=== PATIENT | female | born 1945 | race Caucasian/White ===

== ENCOUNTER 2016-05-11 12:31 | Inpatient (IN) | payer OTHER, MEDICARE ==
[~2016-05-11] VITALS: Ht 157.5 cm; Wt 90.7 kg
--- NOTE | 2016-05-11 12:43 | NUR ---
PT PRESENTS TO ER C/O OF NAUSEA AND DIARRHEA X4 DAYS. PT ALSO C/O OF ON AND OFF CHEST PAIN WHEN COUGHING. PT STATES SHE HAS A NON PRODUCTIVE COUGH THAT STARTED 4 DAYS AGO. PT ALSO C/O OF PAIN TO THROAT WHEN COUGHING
[2016-05-11 13:00] LABS: ABSOLUTE BASOPHIL COUNT 0 /CUMM (0.0-0.2); ABSOLUTE EOSINOPHIL COUNT 0 /CUMM (0.0-0.7); ABSOLUTE GRANULOCYTE CT 3.7 /CUMM (1.4-6.5); ABSOLUTE LYMPH COUNT 0.8 /CUMM (1.2-3.4); ABSOLUTE MONOCYTE COUNT 0.6 /CUMM (0.10-0.60); BASOPHIL % 0.6 % (0.0-2.0); EOSINOPHIL % 0.8 % (0-5); GRANULOCYTE % 70.9 % (42.2-75.2); HEMATOCRIT 38.1 % (37-47); MEAN CORPUSCULAR HGB 30.3 PG (27.0-31.0); MEAN CORPUSCULAR VOLUME 91.8 FL (81.0-99.0); MEAN PLATELET VOLUME 9.4 FL (7.4-10.4); PLATELET COUNT 112 /CUMM (130-400); RBC DISTRIBUTION WIDTH 14.7 % (11.5-14.5); RED BLOOD CELL CT 4.15 /CUMM (4.20-5.40); WHITE BLOOD CELL COUNT 5.3 /CUMM (4.8-10.8)
--- NOTE | 2016-05-11 13:10 | NUR ---
CRITICAL TEST RESULTS [id number] SIM CASTILLO 70 F TESTS AND RESULTS: INFLUENZA A+ Results received and read back by: ADELINA ARANGO Results received date and time: 05/11/16 1310 The following provider was notified of the results, and read the results back: DR POSADAS Notified date and time: 05/11/16 at 1310
--- NOTE | 2016-05-11 13:16 | RADIOLOGY REPORT ---
EXAMINATION: XR CHEST CLINICAL INFORMATION: Cough, rule out pneumonia COMPARISON: 07/22/2014 TECHNIQUE: Frontal and lateral views of the chest were obtained. FINDINGS: The frontal radiograph is underpenetrated. Lungs are clear. No focal consolidation or mass. Normal pulmonary vascularity. No pleural effusion or pneumothorax. Normal heart size. Sternal wires. Mildly tortuous aorta. Multilevel degenerative changes of the thoracic spine with diffuse idiopathic skeletal hyperostosis.. IMPRESSION: No acute pulmonary disease.
--- NOTE | 2016-05-11 14:08 | ED INFLUENZA/URI COMPLAINT ---
History of Present Illness General Chief Complaint: Upper Respiratory Sx/Fever Stated Complaint: NVD X4 DAYS COUGH AND NECK PAIN Source: patient, family, old records Exam Limitations: no limitations Vital Signs & Intake/Output Vital Signs & Intake/Output Vital Signs Date Time Temp Pulse Resp B/P Pulse O2 O2 Flow FiO2 Ox Delivery Rate 05/13 0000 Room Air 05/12 2219 98.5 63 20 160/70 92 Room Air 05/12 1600 Room Air 05/12 1347 97.4 76 20 138/70 96 Room Air 05/12 0800 Room Air ED Intake and Output 05/13 0000 05/12 1200 Intake Total 2742 1120 Output Total 1500 700 Balance 1242 420 Intake, IV 1302 1000 Intake, Oral 1440 120 Number 0 Bowel Movements Output, Urine 1500 700 Patient 200 lb Weight Allergies Coded Allergies: oxycodone (Intermediate, ITCHING 05/11/16) Reconcile Medications Amlodipine Besylate 10 MG TABLET 1 TAB PO DAILY BLOOD PRESSURE (Reported) Atenolol 100 MG TABLET 1 TAB PO DAILY BLOOD PRESSURE (Reported) Atorvastatin Calcium 40 MG TABLET 1 TAB PO 5PM CHOLESTEROL (Reported) Furosemide 40 MG TABLET 1 TAB PO DAILY EDEMA (Reported) Reason to Stop at ADM: RUFINO Hydrochlorothiazide 25 MG TABLET 1 TAB PO DAILY BLOOD PRESSURE (Reported) Reason to Stop at ADM: RUFINO Insulin Detemir (Levemir) 100 UNIT/ML VIAL 35 UNITS SC BID DM (Reported) Levothyroxine Sodium 175 MCG TABLET 1 TAB PO DAILY AC THYROID (Reported) Lisinopril 20 MG TABLET 1 TAB PO DAILY BLOOD PRESSURE (Reported) Reason to Stop at ADM: RUFINO Omeprazole 40 MG CAPSULE.DR 1 CAP PO DAILY GERD (Reported) Triage Note: PT PRESENTS TO ER C/O OF NAUSEA AND DIARRHEA X4 DAYS. PT ALSO C/O OF ON AND OFF CHEST PAIN WHEN COUGHING. PT STATES SHE HAS A NON PRODUCTIVE COUGH Triage Nurses Notes Reviewed? yes Onset: Abrupt Duration: day(s): (4), constant Timing: recent history Severity: moderate Severity Numbers: 7 No Modifying Factors: none Associated Symptoms: lightheadedness, muscle aches, nausea, diarrhea HPI: This is 70-year-old female with history of coronary artery disease insulin- dependent diabetic presents complaining of 4 day history of a nonproductive cough, sore throat diarrhea and nausea chills generalized bodyaches. She denies any sick contacts with similar symptoms. No abdominal pain no fevers. The patient states she's been unable to keep anything down secondary to her symptoms and has had difficulty taking her medicine other than her insulin. She reports she's had chest pain secondary to her coughing denies any chest pain at this time no palpitations dizziness or lightheadedness. No modifying factors or associated symptoms otherwise no black or bloody stools (SANGEETA KNOWLES) Past History Travel History Traveled to [place] past 21 day No Medical History Any Pertinent Medical History? see below for history Cardiovascular: hypertension, hyperlipidemia Endocrine: diabetes Pneumonia Vaccine: 01/31/12 Influenza Vaccine: 01/31/12 Surgical History Surgical History: non-contributory Psychosocial History Who do you live with Spouse What is your primary language [place] Tobacco Use: Never used Family History Hx Contributory? No (SANGEETA KNOWLES) Review of Systems Review of Systems Constitutional: Reports: see HPI. All Other Systems: Reviewed and Negative Comments Review of systems: See HPI, All other systems negative. Constitutional, no chills no fever, no malaise HEENT: No visual changes no sore throat no congestion, no ear pain Cardiovascular: No chest pain , no palpitation Skin, no jaundice no rashes, no change in skin Respiratory: No dyspnea no cough no sputum GI: No nausea no vomiting, diarrhea, no bloating/constipation : No dysuria No hematuria, no frequency, no discharge Muscle skeletal: No joint pain, no joint swelling, no back pain, no neck pain, Neurologic: no headache Psych: No stress . Heme/endocrine: No bruising no bleeding Immunology: No lymphadenopathy (SANGEETA KNOWLES) Physical Exam Physical Exam General Appearance: well developed/nourished, alert, awake Ears, Nose, Throat: normal ENT inspection, moist mucous membrane, hearing grossly normal Comments: Well-developed well-nourished person in no acute distress HEENT: Normal EENT exam; PERRL, EOMI, no nystagmus. HEAD is atraumatic. moist mucous membranes. Neck: Supple, no lymphadenopathy, normal range of motion without pain or tenderness Back: Nontender, no CVA tenderness. Full range of motion Cardiovascular: Regular rate and rhythms no murmurs rubs or gallops, normal JVP Respiratory: Chest nontender.There were no bony deformities, no asymmetry. No respiratory distress. Patient speaking in full complete sentences. Breath sounds clear to auscultation bilaterally: NO W/R/R Abdomen: Soft, nontender nondistended, no appreciable organomegaly. Normal bowel sounds. No rebound/guarding, No appreciable enlargement of the abdominal aorta, No ascites. Extremity: No edema, full range of motion of extremities, normal and equal pulses bilaterally, 5 out of 5 strength noted to bilateral upper and lower extremities Neuro: Alert oriented x3, motor sensory normal, cranial nerves II through XII grossly intact. There were no obvious focal neurologic abnormalities. Skin: No appreciable rash on exposed skin, skin is warm and dry. Psych: Mood and affect is normal, memory and judgment is normal. Core Measures Severe Sepsis Present: No Septic Shock Present: No (SANGEETA KNOWLES) Progress Differential Diagnosis: influenza, pneumonia, pharyngitis, bronchitis electrolyte abnormality dehydration acute KS Plan of Care: Orders Procedure Date/time Status CBC WITHOUT DIFFERENTIAL 05/13 0600 Active BASIC ELECTROLYTES PLUS BUN&CR 05/13 0600 Active Consistent Carbohydrate 2 05/12 L Active BLOOD CULTURE 05/12 0740 Active URIC ACID 05/12 0640 Complete Lab Add-on Test 05/12 UNK Active Nursing Misc 05/12 UNK Active Current Medications Sig/Nita Start time Last Medication Dose Stop Time Status Admin Prednisone 10 MG BID 05/17 1000 AC 05/18 2200 Prednisone 15 MG BID 05/15 1000 AC 05/16 220 Prednisone 20 MG BID 05/13 1000 AC 05/14 2201 Acetaminophen 1,000 MG Q6P PRN 05/11 1600 AC (Ofirmev) Loperamide HCl 2 MG Q3P PRN 05/11 1600 AC (Imodium) Morphine Sulfate 2 MG Q4P PRN 05/11 1600 AC (Morphine) Ondansetron HCl 4 MG Q6P PRN 05/11 1500 AC (Zofran) Microbiology 05/12 0830 BLOOD: Blood Culture - RECD 05/12 0825 BLOOD: Blood Culture - RECD Alabs ordered, old records reviewed. Case discussed with Dr. alanis Discussed with patient at length all of her lab results Gran in 3.0 is elevated from baseline, given positive flu recent dehydration IV fluids ordered case d/w dr gordo donaldson in dept to tiffanie pt (SANGEETA KNOWLES) Diagnostic Imaging: Viewed by Me: Radiology Read. Discussed w/RAD: Radiology Read. Radiology Impression: PATIENT: SIM CASTILLO PRESENT AGE: 70 PATIENT ACCOUNT NO: [id number] : 43 LOCATION: [facility] ORDERING PHYSICIAN: MAN LEÓN DO (TBS) SERVICE DATE: 05/11/16-1242 EXAM TYPE: RAD - XRY-CHEST XRAY, PA AND LATERAL EXAMINATION: XR CHEST CLINICAL INFORMATION: Cough, rule out pneumonia COMPARISON: 07/22/2014 TECHNIQUE: Frontal and lateral views of the chest were obtained. FINDINGS: The frontal radiograph is underpenetrated. Lungs are clear. No focal consolidation or mass. Normal pulmonary vascularity. No pleural effusion or pneumothorax. Normal heart size. Sternal wires. Mildly tortuous aorta. Multilevel degenerative changes of the thoracic spine with diffuse idiopathic skeletal hyperostosis.. IMPRESSION: No acute pulmonary disease. DICTATED BY: MARILIA ARAIZA MD DATE/TIME DICTATED:1311 COST CLERK:LÓPEZ DATE/TIME TRANSCRIBED:05/11/161311 CONFIDENTIAL, DO NOT COPY WITHOUT APPROPRIATE AUTHORIZATION. <Electronically signed in Other Vendor System> SIGNED BY: MARILIA ARAIZA MD 05/11/161315 Initial ED EKG: normal sinus at [address] segment changes normal axis Prior EKG: unchanged (07/2012) (SANGEETA KNOWLES) Departure Departure Time of Disposition: 1527 Disposition: STILL A PATIENT Condition: Stable Clinical Impression Primary Impression: Influenza A Secondary Impressions: Acute kidney injury Referrals: RICHY WEEKS,JIMI Reyes (PCP/Family) Departure Forms: Customer Survey General Discharge Information Admission Note Spoke With: GORDO WEEKS,RACHEL Documentation of Exam: Documentation of any treatments & extenuating circumstances including Concerns Regarding Discharge (functional status, medication knowledge or non-compliance, living conditions, etc.) that warrant an admission rather than observation: trend labs IV fluids, premature discharge would BE medically harmful] (SANGEETA KNOWLES) PA/ASSEMBLER CARBON BRUSHES Co-Sign Statement Statement: ED Attending supervision documentation- [X] I saw and evaluated the patient. I have also reviewed all the pertinent lab results and diagnostic results. I agree with the findings and the plan of care as documented in the PA's/ASSEMBLER CARBON BRUSHES's documentation. [X] I have reviewed the ED Record and agree with the PA's/ASSEMBLER CARBON BRUSHES's documentation. [] Additions or exceptions (if any) to the PAs/ASSEMBLER CARBON BRUSHES's note and plan are summarized below: [] (CUAUHTEMOC WEEKS,EMILIANA Benavides) 05/11 1530 STOOL: Stool Culture - RECD Alabs ordered, old records reviewed. Case discussed with Dr. alanis Discussed with patient at length all of her lab results Gran in 3.0 is elevated from baseline, given positive flu recent dehydration IV fluids ordered case d/w dr gordo garrett dmit alta donaldson in dept to [place] pt (SANGEETA KNOWLES) Departure Departure Time of Disposition: 1527 Disposition: STILL A PATIENT Condition: Stable Clinical Impression Primary Impression: Influenza A Secondary Impressions: Acute kidney injury Referrals: RICHY WEEKS,JMII Reyes (PCP/Family) Departure Forms: Customer Survey General Discharge Information Admission Note Spoke With: RACHEL AGUSTIN MD Documentation of Exam: Documentation of any treatments & extenuating circumstances including Concerns Regarding Discharge (functional status, medication knowledge or non-compliance, living conditions, etc.) that warrant an admission rather than observation: trend labs IV fluids, premature discharge would BE medically harmful] (SANGEETA KNOWLES) PA/ASSEMBLER [employer]BON BRUSHES Co-Sign Statement Statement: ED Attending supervision documentation- [X] I saw and evaluated the patient. I have also reviewed all the pertinent lab results and diagnostic results. I agree with the findings and the plan of care as documented in the PA's/ASSEMBLER CARBON BRUSHES's documentation. [X] I have reviewed the ED Record and agree with the PA's/ASSEMBLER CARBON BRUSHES's documentation. [] Additions or exceptions (if any) to the PAs/ASSEMBLER CARBON BRUSHES's note and plan are summarized below: [] (CUAUHTEMOC WEEKS,EMILIANA Benavides)
--- NOTE | 2016-05-11 14:48 | NUR ---
PT ADMITTED TO ROOM 227
--- NOTE | 2016-05-11 15:16 | Admission Certification ---
Admission Certification Certification Statement - As attending physician, I certify that at the time of - admission, based on clinical presentation, severity of - symptoms, need for further diagnostic testing and - therapeutic interventions, and risk of adverse outcomes - without in-hospital treatment, in my clinical assessment, - this patient requires an acute hospital stay for a minimum - of two nights or longer. I have also considered psychsocial - factors such as support system, advanced age, financial - issues, cognitive issues, and failed out-patient treatments, - past re-admission history, safety of patient, and lack of - compliance as applicable. Specific rationale supporting this admission is: Influenza with profuse diarrhea, dehydration, and RUFINO
--- NOTE | 2016-05-11 15:21 | NUR ---
LINE EST #20 TO RAC. MEDICATED PER EMAR.
[2016-05-11] MEDS ORDERED: LEVOTHYROXINE175 MCG PO (15:46)
[2016-05-11] MEDS ORDERED: ATORVASTATIN CA40 M1 PO (15:47)
[2016-05-11] MEDS ORDERED: LEVEMIR100 UNIT/1 SC (15:47)
[2016-05-11] MEDS ORDERED: LISINOPRIL20 M1 PO (15:48)
[2016-05-11] MEDS ORDERED: OMEPRAZOLE40 M1 PO (15:48)
[2016-05-11] MEDS ORDERED: ATENOLOL100 M1 PO (15:48)
[2016-05-11] MEDS ORDERED: HYDROCHLOROTHIA25 M1 PO (15:48)
[2016-05-11] MEDS ORDERED: AMLODIPINE BESY10 M1 PO (15:49)
[2016-05-11] MEDS ORDERED: FUROSEMIDE40 M1 PO (15:49)
--- NOTE | 2016-05-11 15:50 | History & Physical ---
MARILYN WEI MD 05/11/16 1549: General Information and HPI MD Statement: I have seen and personally examined SIM CASTILLO and documented this H&P. The patient is a 70 year old F who presented with a patient stated chief complaint of fatigue, weakness, decreased oral intake, muscle aches, and loose watery bowel movements. Source of Information: patient, family Exam Limitations: no limitations History of Present Illness: 70-year-old woman seen for evaluation of fatigue, lethargy, pain, diarrhea, and poor oral intake. At bedside is patient's whom is available for collateral information. They state that they have both been dealing with an "illness" for the past 4/5 days. She reports numerous loose bowel movements that were originally dark but have now turned to loose watery brown consistency. She also complains of profound fatigue and lethargy with various nonspecific sites of pain in addition to her chronic low back pain for which she receives injections periodically. She does also admit to not eating or drinking as well as she should be. She denies taking any [id number] remedies for relief and otherwise states no aggravating symptoms. She does admit to associated neck pain characterized as 8/10 with radiation to the back of her head. She denies any fever, cough, chest pain, or shortness of breath. Additionally she denies any headache, chills, palpitations, vomiting, urinary frequency/urgency/burning/pain/bloody urine. PMHx: Hypertension, hyperlipidemia, IDDM, chronic low back pain Social Hx: Denies smoking/alcohol/recreational drug use, lives at home and ambulates independently able to complete all activities of daily living without difficulty at baseline, patient of Dr. Han, did not receive flu vaccine Allergies/Medications Allergies: Coded Allergies: oxycodone (Intermediate, ITCHING 05/11/16) Past History Travel History Traveled to [place] past 21 day No Medical History Cardiovascular: hypertension, hyperlipidemia Endocrine: diabetes, hypothyroidism Pneumonia Vaccine: 01/31/12 Influenza Vaccine: 01/31/12 Surgical History Surgical History: non-contributory Past Family/Social History Psychosocial History Smoking Status: Never Smoked ETOH Use: denies use Illicit Drug Use: denies illicit drug use Review of Systems Review of Systems Constitutional: Reports: see HPI. Exam & Diagnostic Data Last 24 Hrs of Vital Signs/I&O Vital Signs Date Time Temp Pulse Resp B/P Pulse O2 O2 Flow FiO2 Ox Delivery Rate 05/11 1758 Room Air 05/11 1728 97.5 61 20 100/60 94 Room Air 05/11 1616 96.1 50 18 122/58 94 Room Air 05/11 1238 97.6 20 95 Room Air Intake & Output 05/11 1600 05/11 0800 05/11 0000 Intake Total 1000 Output Total Balance 1000 Intake, IV 1000 Number 1 Bowel Movements Patient 95.254 kg Weight Physical Exam General Appearance Alert, Oriented X3, Cooperative, No Acute Distress Skin No Rashes, No Breakdown, No Significant Lesion, pale HEENT Atraumatic, PERRLA, EOMI, Mucous Membr. moist/pink Neck Supple Cardiovascular Regular Rate, Normal S1, Normal S2, No Murmurs Lungs Clear to Auscultation, Normal Air Movement Abdomen Normal Bowel Sounds, Soft, No Tenderness, No Hepatospenomegaly, No Masses Neurological Normal Speech, Normal Tone Extremities No Clubbing, No Cyanosis, No Edema, Normal Pulses, No Tenderness/ Swelling Vascular Normal Pulses, Pulses Symmetrical Last 24 Hrs of Labs/Martinez: Laboratory Tests 05/11/16 1253: Hemoglobin A1c Pending 05/11/16 1253: Anion Gap 16, Estimated GFR 15 L, BUN/Creatinine Ratio 33.3 H, Glucose 188 H, Calcium 8.3 L, Total Bilirubin 0.4, AST 39 H, ALT 33, Alkaline Phosphatase 115 , Troponin I 0.05, Total Protein 6.6, Albumin 3.5, Globulin 3.1, Albumin/ Globulin Ratio 1.1, TSH 10.500 H, Free T4 1.13, CBC w Diff NO MAN DIFF REQ, RBC 4.15 L, MCV 91.8, MCH 30.3, RDW 14.7 H, MPV 9.4, Gran % 70.9, Lymphocytes % 15.6 L, Monocytes % 12.1 H, Eosinophils % 0.8, Basophils % 0.6, Absolute Granulocytes 3.7, Absolute Lymphocytes 0.8 L, Absolute Monocytes 0.6, Absolute Eosinophils 0, Absolute Basophils 0, PUBS MCHC 33.0 05/11/16 1243: Virus Culture Pending Microbiology 05/11 1530 STOOL: Clostridium difficile Toxin A & B - RECD 05/11 153 STOOL: Stool Culture - RECD Diagnostic Data EKG Results HR 59 LA 168 QTc 444 CXR Results no acute process Other Results Rapid flu Assessment/Plan Assessment: 70-year-old woman with multiple medical problems seen for evaluation of fatigue, lethargy, weakness, decreased oral intake, and loose watery bowel movements. 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 Chest x-ray and EKG were unremarkable. Rapid flu was positive. Given this positive result in patients history suggestive of a gastroenteritis patient most likely is suffering from influenza versus any other alternative diagnosis-she denies any new/undercooked food consumption or recent travel. She is to be started on intravenous fluid resuscitation for dehydration and acute kidney injury and admitted to the general medicine floor for further management. Influenza/Acute Gastritis: Recent history of loose watery stools, nausea, decreased oral intake, and viral myalgia suggestive of an acute viral infection. Given positive rapid flu test is more likely than not patient is suffering from an active influenza infection. Onset of symptoms is reportedly 4-5 days prior to evaluation so medications such as Tamiflu will no longer be effective. -Supportive treatment -Guaifenesin 10 mL by mouth every 4 hours as needed for cough -Imodium 2 mg by mouth every 3 hours as needed for diarrhea -Zofran 4 mg IV every 6 hours as needed for nausea -Tessalon Perles and 100 mg by mouth 3 times a day when necessary for throat pain Acute kidney injury: Baseline creatinine 0.8 as of 07/01/13. Given her history of recent decreased oral intake in the past 4 days secondary to her nausea and symptoms of gastroenteritis in addition to her reported history of profuse loose watery bowel movements is more likely than not that she suffered kidney injury secondary to prerenal azotemia. -Avoid nephrotoxic medications such as NSAIDs -Normal saline at 125 mL per hour -Monitor BEP Insulin-dependent diabetes mellitus: -Hold oral hypoglycemics -Accu-Cheks 3 times a day before meals/at bedtime -NovoLog sliding scale insulin -Levemir 25 units twice a day Hypertension-stable, hold atenolol/amlodipine Hyperlipidemia-stable, continue atorvastatin 40 mg by mouth daily Hypothyroidism-stable, continue levothyroxin 175 MCG by mouth daily Pain plan: -Acetaminophen 1 g IV every 6 hours as needed for pain 4-6 Diet-consistent carbohydrate DVT prophylaxis-subcutaneous heparin CODE STATUS-full code As Ranked By This Provider Problem List: 1. Influenza A Core Measures/Miscellaneous Acute Coronary Syndrome ACS Diagnosis: No Cerebrovascular Accident CVA/TIA Diagnosis: No Congestive Heart Failure CHF Diagnosis: No Venous Thromboembolism VTE Risk Factors: Age > 40, Immobility, paresis, Obesity VTE Prophylaxis Ordered Inpt: Pharm- Heparin No Mech VTE prophylaxis d/t: No contraindications No VTE Pharm Prophylaxis d/t: No contraindications VTE Diagnosis: No VTE Type: NONE VTE Confirmed by (Test): NONE Severe Sepsis Severe Sepsis Present: No Septic Shock Septic Shock Present: No Miscellaneous Documentation Attending Case Discussed With: NAVEED LADD MD Primary Care Physician: JIMI HAN MD Patient sees these Specialists None Level of Patient Care: General Medicine NAVEED LADD MD 05/11/16 1716: General Information and HPI Allergies/Medications Home Med list Amlodipine Besylate 10 MG TABLET 1 TAB PO DAILY BLOOD PRESSURE (Reported) Atenolol 100 MG TABLET 1 TAB PO DAILY BLOOD PRESSURE (Reported) Atorvastatin Calcium 40 MG TABLET 1 TAB PO 5PM CHOLESTEROL (Reported) Furosemide 40 MG TABLET 1 TAB PO DAILY EDEMA (Reported) Reason to Stop at ADM: RUFINO Hydrochlorothiazide 25 MG TABLET 1 TAB PO DAILY BLOOD PRESSURE (Reported) Reason to Stop at ADM: RUFINO Insulin Detemir (Levemir) 100 UNIT/ML VIAL 35 UNITS SC BID DM (Reported) Levothyroxine Sodium 175 MCG TABLET 1 TAB PO DAILY AC THYROID (Reported) Lisinopril 20 MG TABLET 1 TAB PO DAILY BLOOD PRESSURE (Reported) Reason to Stop at ADM: RUFINO Omeprazole 40 MG CAPSULE.DR 1 CAP PO DAILY GERD (Reported) Attending MD Review Statement Attending Statement Attending MD Statement: examined this patient, discuss w/resident/PA/NURSING ASSISTANT, agreed w/resident/PA/NURSING ASSISTANT, reviewed EMR data (avail) Attending Assessment/Plan: 70F PMH HTN, HLD, IDDM presenting with 4 days of chills, diffuse myalgia, weakness, fatigue, sore throat, and profuse watery diarrhea. Patient appears ill and weak. Her recently tested positive for influenza. BP 122/58, HR 58, saturating well. Appears ill and diaphoretic on exam with evident dehydration, normal pharynx, no lymphadenopathy, clear lungs, normal cardiac exam, soft abdomen. Labs show RUFINO and dehydration. Rapid flu is positive. Plan - Admit to general medicine - IV hydration - Monitor renal function - No Tamiflu at this time as symptoms have been present for 4 days - Loperamide PRN for diarrhea - Tessalon Perles and Mucinex for cough - Agree with resident plan - Hold anti-hypertensives for now - Continue home medications - DVT PPx DANNY WEEKS,DANARANDOLPH 05/11/162042: Resident Review Statement Resident Statement: examined this patient, discussed with corporate intern, agreed with corporate intern, discussed with family, reviewed EMR data (avail), discussed with nursing , discussed with case mgmt, reviewed images, amended to note Other Findings: 70 yo female with pmh of HTN, HLD, DM, hypothyrodism, chronic back pain, hypothyroidism came from home due to chills, nausea, loose watery diarrhea x 4 days. Her oral intake was decreased and she had watery brownish stool > 10 times per day. Her had a recent flu. V/S: Afebrile, LA 50 RR 18 BP 122/58 Sat 94% on RA, alert, Ox3, in acute distress, CTA, regular rate, normal S1/S2, increased bowel sound, RLL Abdomen Td(+) without rTd. WBC 5.3, BUN 100/Cr 3, TSH 10.5, fT4 1.13. Influenza (+), CXR: unremarkable. 1. Influenza: No evidence of pneumonia. No need for tamiflu for now. cough suppressant for symptoms relief. 2. Diarrhea likely secondary to viral enteritis: No recent Hx of antibiotics. follow up stool culture. supportive management with IV fluid and imodium prn. 3. Acute kidney injury: likely prerenal from dehydration. continue IV hydration, check I/Os, BEP in AM, Avoid NSAIDS, ACEinh/ARB, diuretics. 4. DM: continue levemir & s/s. As pt's oral intake was decreased, SC levemir dose was decreased. Will adjust according to glucose level. check HbA1c. 5. Chronic back pain: pain pathway according to pain level. Avoid NSIADs due to RUFINO. 6. Hypothyroidism: c/w levothyroxine 175mcg. Diabetic diet, SC heparin, full code.
--- NOTE | 2016-05-11 16:28 | NUR ---
REPORT GIVEN TO ROGER. [facility] CALLED FOR PT TRANSPORT.
[2016-05-11 17:28] VITALS: BP 100/60
--- NOTE | 2016-05-11 20:01 | NUR ---
PT UP TO THE FLOOR AT 1710. PT ON DROPLET PX FOR +FLU. MASK ON PT IN HALLS. PT ORIENETED TO ROOM AND CALL LIGHT SYSTEM. PT A/O X3. VSS. PER PT GEENRALIZED WEAKENSS. CANE AT BASELINE, NO CANE WITH PT. GLASSES ON . DENTURES IN . PT C/O R FLANK PAIN DENIES NEED FOR INTERVENTION. URINE SAMPLE OBTAINED. GROIN REDNESS OTHERWISE NO BREAKDOWN NOTED. BSC IN ROOM. WILL MONITOR
[2016-05-11 22:14] VITALS: BP 110/60
[2016-05-12 06:30] VITALS: BP 116/70
--- NOTE | 2016-05-12 07:35 | PN- Housestaff ---
SANJUANA WEEKS,MARILYN 05/12/16 0735: Subjective Follow-up For: Influenza Acute kidney injury Urinary tract infection Subjective: Patient seen and examined. She is seen lying flat in bed resting comfortably. She appears to be in no acute distress. She states that she feels "a little better" than yesterday and reports improvement of her diarrhea. She does however admit to new right-sided abdominal pain that radiates to the back with discomfort upon urination. Additionally she comments that her left foot is exquisitely painful and denies any recent trauma. Otherwise she denies any headache, fever, chills, chest pain, palpitations, shortness of breath, vomiting. No overnight events reported. Review of Systems Constitutional: Reports: see HPI. Objective Last 24 Hrs of Vital Signs/I&O Vital Signs Date Time Temp Pulse Resp B/P Pulse O2 O2 Flow FiO2 Ox Delivery Rate 05/12 0630 97.9 60 20 116/70 93 Room Air 05/12 0000 Room Air 05/11 2214 97.9 64 22 110/60 95 Room Air 05/11 1758 Room Air 05/11 1728 97.5 61 20 100/60 94 Room Air 05/11 1616 96.1 50 18 122/58 94 Room Air 05/11 1238 97.6 20 95 Room Air Intake & Output 05/12 1600 05/12 0800 05/12 0000 Intake Total 1120 1125 Output Total 700 400 Balance 420 725 Intake, IV 1000 625 Intake, Oral 120 500 Number 1 Bowel Movements Output, Urine 700 400 Patient 90.718 kg Weight Physical Exam General Appearance: Alert, Oriented X3, Cooperative, No Acute Distress Other Physical Findings: General -well-developed, obese woman in no acute distress HEENT - NCAT, PERRL, EOMI, anicteric sclera, on room air Cardio -blowing systolic murmur Resp -minimal wheezing without rhonchi/crackles GI - soft, obese,nondistended, bowel sounds present, right sided CVA tenderness, minimal suprapubic tenderness Neuro - Awake and alert, CN II - XII grossly intact Extremities - no edema, pulses intact, exquisite left foot tenderness without any obvious open wounds/deformities, chronic lower extremity skin changes Current Medications: Current Medications Sig/Nita Start time Last Medication Dose Route Stop Time Status Admin Acetaminophen 1,000 MG Q6P PRN 05/11 1600 AC IV Acetaminophen 0 .STK-MED ONE 05/11 1504 DC IV Acetaminophen 1,000 MG ONCE ONE 05/11 1430 DC 05/11 N/A 1 UNIT IV 05/11 1444 1520 Amlodipine Besylate 10 MG DAILY 05/12 1000 CAN PO Atenolol 100 MG DAILY 05/12 1000 CAN PO Atorvastatin Calcium 40 MG 5PM 05/11 1700 AC 05/11 PO 1835 Benzonatate 100 MG TID 05/11 2200 AC 05/11 PO 2052 Ceftriaxone Sodium 1,000 MG DAILY 05/12 1000 AC IV Guaifenesin 10 ML .STK-MED ONE 05/12 0008 DC PO 05/12 0009 Guaifenesin 10 ML Q4P PRN 05/11 1600 AC 05/12 PO 0633 Heparin Sodium 5,000 UNIT Q8 05/11 2200 AC 05/12 (Porcine) SC 0625 Insulin Aspart 0 TIDAC 05/11 1700 AC 05/11 SC 1816 Insulin Detemir 25 UNITS BID 05/11 2200 AC 05/11 SC 2053 Levothyroxine Sodium 0.175 MG DAILY AC 05/12 0700 AC 05/12 PO 0624 Loperamide HCl 2 MG Q3P PRN 05/11 1600 AC PO Melatonin 5 MG ONCE ONE 05/11 2100 DC 05/11 PO 05/11 2101 2144 Morphine Sulfate 2 MG Q4P PRN 05/11 1600 AC IV Nystatin 1 VALARIE BID 05/11 2200 AC 05/11 TOP 2144 Omeprazole 40 MG DAILY AC 05/12 0700 AC 05/12 PO 0624 Ondansetron HCl 4 MG Q6P PRN 05/11 1500 AC IV Oseltamivir Phosphate 30 MG BID 05/11 2200 CAN PO 05/15 2159 Oseltamivir Phosphate 30 MG ONCE ONE 05/11 1445 DC 05/11 PO 05/11 1446 1633 Oseltamivir Phosphate 75 MG ONCE ONE 05/11 1430 CAN PO 05/11 1431 Sodium Chloride 1,000 ML Q8H 05/11 1615 DC 05/12 IV 05/12 0814 0011 Sodium Chloride 1,000 ML BOLUS ONE 05/11 1415 DC 05/11 IV 05/11 1514 1520 Last 24 Hrs of Lab/Martinez Results Last 24 Hrs of Labs/Mics: Laboratory Tests 05/12/16 0640: Sodium Pending, Potassium Pending, Chloride Pending, Carbon Dioxide Pending, Anion Gap Pending, BUN Pending, Creatinine Pending, BUN/Creatinine Ratio Pending , Uric Acid Pending, Triglycerides Pending, Cholesterol Pending, LDL Cholesterol , Calc Pending, HDL Cholesterol Pending, Cholesterol/HDL Ratio Pending, CBC w Diff Pending, WBC Pending, RBC Pending, Hgb Pending, Hct Pending, MCV Pending, MCH Pending, RDW Pending, Plt Count Pending, MPV Pending, PUBS MCHC Pending 05/12/16 0505: Urinalysis LIGHT H, Urine Color YEL, Urine Clarity HAZY H, Urine pH 7.0, Ur Specific [place] 1.010, Urine Protein TRACE H, Urine Ketones NEG, Urine Nitrite NEG, Urine Bilirubin NEG, Urine Urobilinogen 0.2, Ur Leukocyte Esterase LARGE H , Ur Microscopic SEDIMENT EXAMINED, Urine RBC RARE, Urine WBC PACKD H, Ur Epithelial Cells OCCAS, Urine Hemoglobin SMALL H, Urine Glucose NEG 05/11/16 1840: Urine Color YEL, Urine Clarity TURBD H, Urine pH 7.0, Ur Specific [place] 1.015 , Urine Protein 30 H, Urine Ketones NEG, Urine Nitrite NEG, Urine Bilirubin NEG , Urine Urobilinogen 0.2, Ur Leukocyte Esterase LARGE H, Ur Microscopic SEDIMENT EXAMINED, Urine WBC PACKD H, Ur Epithelial Cells PACKD H, Urine Hemoglobin SMALL H, Urine Glucose NEG 05/11/16 1253: Hemoglobin A1c Pending 05/11/16 1253: Anion Gap 16, Estimated GFR 15 L, BUN/Creatinine Ratio 33.3 H, Glucose 188 H, Calcium 8.3 L, Total Bilirubin 0.4, AST 39 H, ALT 33, Alkaline Phosphatase 115 , Troponin I 0.05, Total Protein 6.6, Albumin 3.5, Globulin 3.1, Albumin/ Globulin Ratio 1.1, TSH 10.500 H, Free T4 1.13, CBC w Diff NO MAN DIFF REQ, RBC 4.15 L, MCV 91.8, MCH 30.3, RDW 14.7 H, MPV 9.4, Gran % 70.9, Lymphocytes % 15.6 L, Monocytes % 12.1 H, Eosinophils % 0.8, Basophils % 0.6, Absolute Granulocytes 3.7, Absolute Lymphocytes 0.8 L, Absolute Monocytes 0.6, Absolute Eosinophils 0, Absolute Basophils 0, PUBS MCHC 33.0 05/11/16 1243: Virus Culture Pending Microbiology 05/12 0830 BLOOD: Blood Culture - RECD 05/12 0825 BLOOD: Blood Culture - RECD 05/12 0505 URINE ROUT: Urine Culture - RECD 05/11 1530 STOOL: Clostridium difficile Toxin A & B - RES 05/11 1530 STOOL: Stool Culture - RES Assessment/Plan Assessment: Repeat urinalysis performed overnight demonstrated packed white blood cells without epithelial cells suggestive of a urinary tract infection. Patient further comments that she has new right-sided flank pain and lower abdominal pain with urinary discomfort/frequency this morning. Blood cultures were obtained 2 and patient was started on Rocephin. Her left foot pain etiology is unknown and she denies any past history of previous episodes, trauma, surgery, or history of gout/arthritis. Uric acid is found to be elevated to 11.7. Phone consultation was placed with Dr. Poe in regards to her foot pain and hyperuricemia. She is to be started on a Medrol dose taper in lieu of NSAIDs due to her failure. Her symptoms of influenza are well controlled on the current regimen. Influenza/Acute Gastritis: Recent history of loose watery stools, nausea, decreased oral intake, and viral myalgia suggestive of an acute viral infection. Given positive rapid flu test is more likely than not patient is suffering from an active influenza infection. Onset of symptoms is reportedly 4-5 days prior to evaluation so medications such as Tamiflu will no longer be effective. -Supportive treatment -Guaifenesin 10 mL by mouth every 4 hours as needed for cough -Imodium 2 mg by mouth every 3 hours as needed for diarrhea -Zofran 4 mg IV every 6 hours as needed for nausea -Tessalon Perles and 100 mg by mouth 3 times a day when necessary for throat pain Acute kidney injury: Baseline creatinine 0.8 as of 07/01/13. Given her history of recent decreased oral intake in the past 4 days secondary to her nausea and symptoms of gastroenteritis in addition to her reported history of profuse loose watery bowel movements is more likely than not that she suffered kidney injury secondary to prerenal azotemia. -Avoid nephrotoxic medications such as NSAIDs -Normal saline at 125 mL per hour -Monitor BEP Urinary tract infection: Patient complaining of right-sided flank pain/suprapubic tenderness with urinary frequency/urgency. -Ceftriaxone 1 g IV daily -Follow-up blood/urine cultures Acute gouty arthritis: Patient complaining of exquisite left foot/ankle tenderness. No history of trauma/surgery/gout. Uric acid found to be elevated to 11.7. Hyperuricemia is probably secondary to the relative dehydration from the profuse loose all movements in the decreased fluid intake. Patient also takes Lasix which may have contributed to this. Consultation with Dr. Poe (assembler steam and gas turbine) was made over the phone for which he recommended a steroid course. -Continue to hold Lasix and NSAIDs -Methylprednisolone 40 mg IV once today -Medrol 20 mg by mouth twice a day 2 days 05/13/16-05/15/16 -Medrol 15 mg by mouth twice a day 2 days 05/16/16-05/18/16 -Medrol 10 mg by mouth twice a day 2 days 05/19/16-05/21/16 -Rheumatology consult Insulin-dependent diabetes mellitus: -Hold oral hypoglycemics -Accu-Cheks 3 times a day before meals/at bedtime -NovoLog sliding scale insulin -Levemir 25 units twice a day Hypertension-stable, hold atenolol/amlodipine Hyperlipidemia-stable, continue atorvastatin 40 mg by mouth daily Hypothyroidism-stable, continue levothyroxin 175 MCG by mouth daily Pain plan: -Acetaminophen 1 g IV every 6 hours as needed for pain 4-6 Diet-consistent carbohydrate DVT prophylaxis-subcutaneous heparin CODE STATUS-full code Problem List: 1. Influenza A Pain Ratin Pain Location: Left foot Pain Goal: Pain 7 or less Pain Plan: Steroids Tomorrow's Labs & Rationales: CBC BEP NAVEED LADD MD 05/12/16 1157: Attending MD Review Statement Attending Statement Attending MD Statement: examined this patient, discuss w/resident/PA/SUBSTATION OPERATOR HELPER, agreed w/resident/PA/SUBSTATION OPERATOR HELPER, reviewed EMR data (avail) Attending Assessment/Plan: 70F PMH HTN, HLD, IDDM presenting with 4 days of chills, diffuse myalgia, weakness, fatigue, sore throat, and profuse watery diarrhea. Patient appears ill and weak. Her recently tested positive for influenza. BP 122/58, HR 58, saturating well. Appears ill and diaphoretic on exam with evident dehydration, normal pharynx, no lymphadenopathy, clear lungs, normal cardiac exam, soft abdomen. Labs show RUFINO and dehydration. Rapid flu is positive. Today patient is more awake and alert. She still feels fatigue but is improving. 2 BM overnight, afebrile, normal BP. Creatinine improving. Reports pain to her left anterior foot, which is exquisitely tender to slight touch, without erythema or swelling. Also reports vaginal pruritis, with vaginal candidiasis present. 1. Influenza 2. UTI 3. Acute gouty attack of left foot 4. Vaginal candidiasis 5. RUFINO 6. Dehydration 7. Diarrhea due to influenza Plan - IV hydration, give additional 2L normal saline - Monitor renal function - No Tamiflu at this time as symptoms have been present for 4 days - Continue Ceftriaxone for UTI, narrow when cultures return - Nystatin for candidiasis - Resident spoke with rheumatology, will start Medrol for gout (uric acid level 11.6) - Loperamide PRN for diarrhea - Tessalon Perles and Mucinex for cough - Hold anti-hypertensives for now - Continue home medications - DVT PPx
[2016-05-12 09:24] LABS: ABSOLUTE BASOPHIL COUNT 0 /CUMM (0.0-0.2); ABSOLUTE EOSINOPHIL COUNT 0 /CUMM (0.0-0.7); BASOPHIL % 0.3 % (0.0-2.0); WHITE BLOOD CELL COUNT 4.2 /CUMM (4.8-10.8)
[2016-05-12 09:40] LABS: ABSOLUTE GRANULOCYTE CT 3.2 /CUMM (1.4-6.5); ABSOLUTE LYMPH COUNT 0.5 /CUMM (1.2-3.4); ABSOLUTE MONOCYTE COUNT 0.4 /CUMM (0.10-0.60); EOSINOPHIL % 0.7 % (0-5); GRANULOCYTE % 75.7 % (42.2-75.2); MEAN CORPUSCULAR HGB 30.7 PG (27.0-31.0); MEAN CORPUSCULAR HGB CONC 33.9 G/DL (33.0-37.0); MEAN CORPUSCULAR VOLUME 90.4 FL (81.0-99.0); MEAN PLATELET VOLUME 10.3 FL (7.4-10.4); RBC DISTRIBUTION WIDTH 14.3 % (11.5-14.5); RED BLOOD CELL CT 3.53 /CUMM (4.20-5.40)
[2016-05-12 10:32] LABS: HEMATOCRIT 31.9 % (37-47)
[2016-05-12 10:33] LABS: PLATELET COUNT 71 /CUMM (130-400)
[2016-05-12 13:47] VITALS: BP 138/70
[2016-05-12 22:19] VITALS: BP 160/70
--- NOTE | 2016-05-13 06:59 | PN- Housestaff ---
SHELLI SOL 05/13/16 0659: Subjective Follow-up For: 1. influenza Subjective: The patient was comfortable this morning. Did not have any abdominal pain, no loose stools. He remained afebrile overnight. Blood pressure 110/70. Pain in her left foot improved compared to yesterday. Review of Systems Constitutional: Reports: see HPI. Objective Last 24 Hrs of Vital Signs/I&O Vital Signs Date Time Temp Pulse Resp B/P Pulse O2 O2 Flow FiO2 Ox Delivery Rate 05/13 0000 Room Air 05/12 2219 98.5 63 20 160/70 92 Room Air 05/12 1600 Room Air 05/12 1347 97.4 76 20 138/70 96 Room Air 05/12 0800 Room Air Intake & Output 05/13 0800 05/13 0000 05/12 1600 Intake Total 960 1320 1422 Output Total 550 1000 500 Balance 410 320 922 Intake, IV 600 600 702 Intake, Oral 360 720 720 Number 0 Bowel Movements Output, Urine 550 1000 500 Patient 200 lb Weight Physical Exam General Appearance: No Acute Distress Other Physical Findings: General Exam: AAOx3, No acute distress, Skin: No rashes, no breakdown HEENT: PERRLA, EOMI Neck: Supple, No JVD No cervical lymphadenopathy CVS: Reg Rate, Normal S1,S2, No MGR Resp: Normal air entry, bilateral rhonchi Abdomen: Soft, No tenderness, Normal Bowel Sounds Neuro: Normal Speech, Strength 5/5 b/l x 4 extremities, Sensation intact, CN III -XII NL, Reflexes 2+ Extremities: No cyanosis, pedal edema, tender left foot. Current Medications: Current Medications Sig/Nita Start time Last Medication Dose Route Stop Time Status Admin Acetaminophen 1,000 MG Q6P PRN 05/11 1600 AC IV Atorvastatin Calcium 40 MG 5PM 05/11 1700 AC 05/12 PO 1637 Benzocaine/Menthol 1 ANATOLIY Q2P PRN 05/12 1330 AC 05/12 PO 1634 Benzonatate 100 MG TID 05/11 2200 AC 05/12 PO 2118 Ceftriaxone Sodium 1,000 MG DAILY 05/12 1000 AC 05/12 IV 0931 Guaifenesin 10 ML Q4P PRN 05/11 1600 AC 05/12 PO 0633 Heparin Sodium 5,000 UNIT Q8 05/11 2200 AC 05/13 (Porcine) SC 0623 Insulin Aspart 0 .[BEDTIME] 05/12 2115 AC 05/12 SC 2117 Insulin Aspart 0 TIDAC 05/11 1700 AC 05/12 SC 1745 Insulin Detemir 25 UNITS BID 05/11 220 AC 05/12 SC 211 Levothyroxine Sodium 0.175 MG DAILY AC 05/12 0700 AC 05/13 PO 0623 Loperamide HCl 2 MG Q3P PRN 05/11 1600 AC PO Melatonin 5 MG AT BEDTIME 05/12 220 AC 05/12 PO 2118 Methylprednisolone 40 MG ONCE ONE 05/12 1115 DC 05/12 IV 05/12 1116 1200 Morphine Sulfate 2 MG Q4P PRN 05/11 1600 AC IV Nystatin 1 VALARIE BID 05/11 220 AC 05/12 TOP 2117 Omeprazole 40 MG DAILY AC 05/12 0700 AC 05/13 PO 0623 Ondansetron HCl 4 MG Q6P PRN 05/11 1500 AC IV Patient Medication 1 ED .STK-MED ONE 05/12 1305 DC Teaching ED 05/12 1306 Prednisone 10 MG BID 05/17 1000 AC PO 05/18 2201 Prednisone 15 MG BID 05/15 1000 AC PO 05/16 2201 Prednisone 20 MG BID 05/13 1000 AC PO 05/14 2201 Sodium Chloride 1,000 ML Q13H 05/12 1000 AC 05/13 IV 05/13 1159 0016 Sodium Chloride 1,000 ML Q8H 05/11 1615 DC 05/12 IV 05/12 0814 0011 Last 24 Hrs of Lab/Martinez Results Last 24 Hrs of Labs/Mics: Microbiology 05/12 0830 BLOOD: Blood Culture - RECD 05/12 0825 BLOOD: Blood Culture - RECD Assessment/Plan Assessment: She is an older lady who is being evaluated for fatigue, lethargy and poor by mouth intake. She has a past medical history of hypertension hyperlipidemia diabetes. Differential diagnoses #1 influenza #2 UTI #3 gout . Influenza/Acute Gastritis: Recent history of loose watery stools, nausea, decreased oral intake, and viral myalgia suggestive of an acute viral infection. Given positive rapid flu test is more likely than not patient is suffering from an active influenza infection. Onset of symptoms is reportedly 4-5 days prior to evaluation so medications such as Tamiflu will no longer be effective. -Supportive treatment -Guaifenesin 10 mL by mouth every 4 hours as needed for cough -Imodium 2 mg by mouth every 3 hours as needed for diarrhea -Zofran 4 mg IV every 6 hours as needed for nausea -Tessalon Perles and 100 mg by mouth 3 times a day when necessary for throat pain Acute kidney injury: Baseline creatinine 0.8 as of 07/01/13. Given her history of recent decreased oral intake in the past 4 days secondary to her nausea and symptoms of gastroenteritis in addition to her reported history of profuse loose watery bowel movements is more likely than not that she suffered kidney injury secondary to prerenal azotemia. -Avoid nephrotoxic medications such as NSAIDs -Normal saline at 75 mL per hour -Monitor BEP Urinary tract infection: Patient complaining of right-sided flank pain/suprapubic tenderness with urinary frequency/urgency. -Ceftriaxone 1 g IV daily -Follow-up blood/urine cultures Acute gouty arthritis: Patient complaining of exquisite left foot/ankle tenderness. No history of trauma/surgery/gout. Uric acid found to be elevated to 11.7. Hyperuricemia is probably secondary to the relative dehydration from the profuse loose all movements in the decreased fluid intake. Patient also takes Lasix which may have contributed to this. Consultation with Dr. Poe (email marketing intern) was made over the phone for which he recommended a steroid course. -Continue to hold Lasix and NSAIDs -Methylprednisolone 40 mg IV once today -Medrol 20 mg by mouth twice a day 2 days 05/13/16-05/15/16 -Medrol 15 mg by mouth twice a day 2 days 05/16/16-05/18/16 -Medrol 10 mg by mouth twice a day 2 days 05/19/16-05/21/16 -Rheumatology consult Insulin-dependent diabetes mellitus: -Hold oral hypoglycemics -Accu-Cheks 3 times a day before meals/at bedtime -NovoLog sliding scale insulin -Levemir 25 units twice a day Leucopenia: - Likely dilutional. -Since the pt is on prednisone, may check peripheral smear. Hypertension-stable, hold atenolol/amlodipine Hyperlipidemia-stable, continue atorvastatin 40 mg by mouth daily Hypothyroidism-stable, continue levothyroxin 175 MCG by mouth daily Pain plan: -Acetaminophen 1 g IV every 6 hours as needed for pain 4-6 Diet-consistent carbohydrate DVT prophylaxis-subcutaneous heparin CODE STATUS-full code Problem List: 1. Acute kidney injury 2. Influenza A Pain Ratin Pain Location: Left foot Pain Goal: Pain 4 or less Pain Plan: tylenol prn Tomorrow's Labs & Rationales: CBC to monitor for leukocytosis Basic electrolyte panel to look for changes in serum creatinine. JULEE WEEKSSILVANALEYLA 05/13/16 1540: Attending MD Review Statement Attending Statement Attending MD Statement: examined this patient, discuss w/resident/PA/TICK ERADICATOR, agreed w/resident/PA/TICK ERADICATOR, reviewed EMR data (avail) Attending Assessment/Plan: 70F PMH HTN, HLD, IDDM presenting with 4 days of chills, diffuse myalgia, weakness, fatigue, sore throat, and profuse watery diarrhea. Patient appears ill and weak. Her recently tested positive for influenza. BP 122/58, HR 58, saturating well. Appears ill and diaphoretic on exam with evident dehydration, normal pharynx, no lymphadenopathy, clear lungs, normal cardiac exam, soft abdomen. Labs show RUFINO and dehydration. Rapid flu is positive. Today patient is more awake and alert. She still feels fatigue but is improving. 2 BM overnight, afebrile, normal BP. Creatinine improving. Reports pain to her left anterior foot, which is exquisitely tender to slight touch, without erythema or swelling. Also reports vaginal pruritis, with vaginal candidiasis present. 1. Influenza 2. UTI 3. Acute gouty attack of left foot 4. Vaginal candidiasis 5. RUFINO 6. Dehydration 7. Diarrhea due to influenza Plan -Continue IV hydration - Monitor renal function - No Tamiflu at this time as symptoms have been present for 4 days - Continue Ceftriaxone for UTI, narrow when cultures return - Nystatin for candidiasis - Resident spoke with rheumatology, will start Medrol for gout (uric acid level 11.6) - Loperamide PRN for diarrhea - Tessalon Perles and Mucinex for cough - Hold anti-hypertensives for now - Continue home medications - DVT PPx
[2016-05-13 07:11] VITALS: BP 110/70
[2016-05-13 08:25] LABS: ABSOLUTE BASOPHIL COUNT 0 /CUMM (0.0-0.2); ABSOLUTE EOSINOPHIL COUNT 0 /CUMM (0.0-0.7); ABSOLUTE GRANULOCYTE CT 1.3 /CUMM (1.4-6.5); ABSOLUTE LYMPH COUNT 0.3 /CUMM (1.2-3.4); ABSOLUTE MONOCYTE COUNT 0.4 /CUMM (0.10-0.60); BASOPHIL % 0.2 % (0.0-2.0); EOSINOPHIL % 0.1 % (0-5); GRANULOCYTE % 63.5 % (42.2-75.2); MEAN CORPUSCULAR HGB 30.6 PG (27.0-31.0); MEAN CORPUSCULAR HGB CONC 33.6 G/DL (33.0-37.0); MEAN CORPUSCULAR VOLUME 91.1 FL (81.0-99.0); RBC DISTRIBUTION WIDTH 14.4 % (11.5-14.5); RED BLOOD CELL CT 3.41 /CUMM (4.20-5.40)
[2016-05-13 10:28] LABS: PLATELET COUNT 66 /CUMM (130-400)
--- NOTE | 2016-05-13 12:02 | PN- Att Addend ---
Attending Addendum Attending Brief Note 70F PMH HTN, HLD, IDDM presenting with 4 days of chills, diffuse myalgia, weakness, fatigue, sore throat, and profuse watery diarrhea. Patient appears ill and weak. Her recently tested positive for influenza. BP 122/58, HR 58, saturating well. Appears ill and diaphoretic on exam with evident dehydration, normal pharynx, no lymphadenopathy, clear lungs, normal cardiac exam, soft abdomen. Labs show RUFINO and dehydration. Rapid flu is positive. 1 BM overnight, afebrile, normal BP. Creatinine improving. Reports pain to her left anterior foot, which is exquisitely tender to slight touch, without erythema or swelling. Also reports vaginal pruritis, with vaginal candidiasis present. WBC 2.6 today. AFVSS Appears ill but improved NCAT Normal pharynx Supple RRR CTAB Soft, NTND No c/c/e, tenderness to anterior left foot Pulses intact A&Ox3 no focal deficits Laboratory Tests 05/13/16 0655: Anion Gap 12, Estimated GFR 44 L, BUN/Creatinine Ratio 45.8 H, CBC w Diff NO MAN DIFF REQ, RBC 3.41 L, MCV 91.1, MCH 30.6, RDW 14.4, MPV 10.0, Gran % 63.5, Lymphocytes % 16.7 L, Monocytes % 19.5 H, Eosinophils % 0.1, Basophils % 0.2, Absolute Granulocytes 1.3 L, Absolute Lymphocytes 0.3 L, Absolute Monocytes 0.4, Absolute Eosinophils 0, Absolute Basophils 0, PUBS MCHC 33.6 Vital Signs Date Time Temp Pulse Resp B/P Pulse O2 O2 Flow FiO2 Ox Delivery Rate 05/13 0711 98.2 60 20 110/70 92 Room Air 1. Influenza 2. UTI 3. Acute gouty attack of left foot 4. Vaginal candidiasis 5. RUFINO 6. Dehydration 7. Diarrhea due to influenza Plan - Continue IV hydration with normal saline at 75mL/hr - Monitor renal function - No Tamiflu at this time as symptoms have been present for 4 days - Continue Ceftriaxone for UTI, narrow when cultures return - Nystatin for candidiasis - Resident spoke with rheumatology, will start Medrol for gout (uric acid level 11.6) - Loperamide PRN for diarrhea - Tessalon Perles and Mucinex for cough - Hold anti-hypertensives for now - Continue home medications - DVT PPx
[2016-05-13 13:48] VITALS: BP 120/70
[2016-05-13 21:42] VITALS: BP 140/72
[2016-05-14 06:57] VITALS: BP 130/70
[2016-05-14 08:02] LABS: ABSOLUTE BASOPHIL COUNT 0 /CUMM (0.0-0.2); ABSOLUTE EOSINOPHIL COUNT 0 /CUMM (0.0-0.7); ABSOLUTE GRANULOCYTE CT 1.9 /CUMM (1.4-6.5); ABSOLUTE LYMPH COUNT 0.4 /CUMM (1.2-3.4); ABSOLUTE MONOCYTE COUNT 0.4 /CUMM (0.10-0.60); BASOPHIL % 0.1 % (0.0-2.0); EOSINOPHIL % 0.1 % (0-5); GRANULOCYTE % 70.4 % (42.2-75.2); HEMATOCRIT 30.1 % (37-47); MEAN CORPUSCULAR HGB 30.5 PG (27.0-31.0); MEAN CORPUSCULAR HGB CONC 33.8 G/DL (33.0-37.0); MEAN CORPUSCULAR VOLUME 90.2 FL (81.0-99.0); MEAN PLATELET VOLUME 9.7 FL (7.4-10.4); RBC DISTRIBUTION WIDTH 14.3 % (11.5-14.5); RED BLOOD CELL CT 3.34 /CUMM (4.20-5.40); WHITE BLOOD CELL COUNT 2.7 /CUMM (4.8-10.8)
--- NOTE | 2016-05-14 08:19 | PN- Housestaff ---
See Addendum Subjective Follow-up For: 1. influenza Subjective: The patient was comfortable this morning. Did not have any abdominal pain, no loose stools. He remained afebrile overnight. Review of Systems Constitutional: Reports: see HPI. Objective Last 24 Hrs of Vital Signs/I&O Vital Signs Date Time Temp Pulse Resp B/P Pulse O2 O2 Flow FiO2 Ox Delivery Rate 05/14 0657 97.6 75 20 130/70 93 Room Air 05/13 2142 98.0 71 20 140/72 94 05/13 1348 97.7 68 20 120/70 96 Room Air Intake & Output 05/14 1600 05/14 0800 05/14 0000 Intake Total 1200 Output Total 700 600 Balance -700 600 Intake, IV 600 Intake, Oral 600 Number 1 Bowel Movements Output, Urine 700 600 Physical Exam General Appearance: No Acute Distress Other Physical Findings: General Exam: AAOx3, No acute distress, Skin: No rashes, no breakdown HEENT: PERRLA, EOMI Neck: Supple, No JVD No cervical lymphadenopathy CVS: Reg Rate, Normal S1,S2, No MGR Resp: Normal air entry, bilateral rhonchi improved. Abdomen: Soft, No tenderness, Normal Bowel Sounds Neuro: Normal Speech, Strength 5/5 b/l x 4 extremities, Sensation intact, CN III -XII NL, Reflexes 2+ Extremities: No cyanosis, pedal edema, tender left foot. Current Medications: Current Medications Sig/Nita Start time Last Medication Dose Route Stop Time Status Admin Acetaminophen 650 MG Q6P PRN 05/13 1930 AC 05/13 PO 1919 Acetaminophen 1,000 MG Q6P PRN 05/11 1600 DC IV Atorvastatin Calcium 40 MG 5PM 05/11 1700 AC 05/13 PO 1601 Benzocaine/Menthol 1 ANATOLIY Q2P PRN 05/12 1330 AC 05/12 PO 1634 Benzonatate 100 MG TID 05/11 2200 AC 05/13 PO 2131 Ceftriaxone Sodium 1,000 MG DAILY 05/12 1000 AC 05/13 IV 0924 Guaifenesin 10 ML .STK-MED ONE 05/13 1558 DC PO 05/13 1559 Guaifenesin 10 ML Q4P PRN 05/11 1600 AC 05/13 PO 2131 Heparin Sodium 5,000 UNIT Q8 05/11 2200 AC 01/22 (Porcine) SC 0559 Insulin Aspart 0 .[BEDTIME] 05/12 2115 AC 05/12 SC 2117 Insulin Aspart 0 TIDAC 05/11 1700 AC 05/14 SC 0752 Insulin Detemir 25 UNITS BID 05/11 220 AC 05/13 SC 2131 Levothyroxine Sodium 0.175 MG DAILY AC 05/12 0700 AC 05/14 PO 0558 Loperamide HCl 2 MG Q3P PRN 05/11 1600 AC PO Melatonin 5 MG AT BEDTIME 05/12 2200 AC 05/13 PO 2131 Morphine Sulfate 2 MG Q4P PRN 05/11 1600 AC IV Nystatin 1 VALARIE BID 05/11 2200 AC 05/13 TOP 2134 Omeprazole 40 MG DAILY AC 05/12 0700 AC 05/14 PO 0558 Ondansetron HCl 4 MG Q6P PRN 05/11 1500 AC IV Prednisone 10 MG BID 05/17 1000 AC PO 05/18 220 Prednisone 15 MG BID 05/15 1000 AC PO 05/16 220 Prednisone 20 MG BID 05/13 1000 AC 05/13 PO 05/14 2201 2131 Sodium Chloride 1,000 ML Q13H 05/13 1215 AC 05/14 IV 05/14 1414 0400 Sodium Chloride 1,000 ML Q13H 05/12 1000 DC 05/13 IV 05/13 1159 0016 Last 24 Hrs of Lab/Martinez Results Last 24 Hrs of Labs/Mics: Laboratory Tests 05/14/16 0620: Sodium Pending, Potassium Pending, Chloride Pending, Carbon Dioxide Pending, Anion Gap Pending, BUN Pending, Creatinine Pending, BUN/Creatinine Ratio Pending , CBC w Diff Pending, WBC Pending, RBC Pending, Hgb Pending, Hct Pending, MCV Pending, MCH Pending, RDW Pending, Plt Count Pending, MPV Pending, PUBS MCHC Pending Assessment/Plan Assessment: She is an older lady who is being evaluated for fatigue, lethargy and poor by mouth intake. She has a past medical history of hypertension hyperlipidemia diabetes. Differential diagnoses #1 influenza #2 UTI #3 gout UC- Enterobacter aerogenes- sensisitve to ciprofloxacin. . Influenza/Acute Gastritis: Recent history of loose watery stools, nausea, decreased oral intake, and viral myalgia suggestive of an acute viral infection. Given positive rapid flu test is more likely than not patient is suffering from an active influenza infection. Onset of symptoms is reportedly 4-5 days prior to evaluation so medications such as Tamiflu will no longer be effective. -Supportive treatment -Guaifenesin 10 mL by mouth every 4 hours as needed for cough -Imodium 2 mg by mouth every 3 hours as needed for diarrhea -Zofran 4 mg IV every 6 hours as needed for nausea -Tessalon Perles and 100 mg by mouth 3 times a day when necessary for throat pain Acute kidney injury: Baseline creatinine 0.8 as of 07/01/13. Given her history of recent decreased oral intake in the past 4 days secondary to her nausea and symptoms of gastroenteritis in addition to her reported history of profuse loose watery bowel movements is more likely than not that she suffered kidney injury secondary to prerenal azotemia. -Avoid nephrotoxic medications such as NSAIDs -Normal saline at 75 mL per hour -Monitor BEP Urinary tract infection: Patient complaining of right-sided flank pain/suprapubic tenderness with urinary frequency/urgency. -Ceftriaxone 1 g IV daily, which could be changed to ciprofloxacin. -Follow-up blood/urine cultures Acute gouty arthritis: Patient complaining of exquisite left foot/ankle tenderness. No history of trauma/surgery/gout. Uric acid found to be elevated to 11.7. Hyperuricemia is probably secondary to the relative dehydration from the profuse loose all movements in the decreased fluid intake. Patient also takes Lasix which may have contributed to this. Consultation with Dr. Poe (oracle applications developer) was made over the phone for which he recommended a steroid course. -Continue to hold Lasix and NSAIDs -Methylprednisolone 40 mg IV once today -Medrol 20 mg by mouth twice a day 2 days 05/13/16-05/15/16 -Medrol 15 mg by mouth twice a day 2 days 05/16/16-05/18/16 -Medrol 10 mg by mouth twice a day 2 days 05/19/16-05/21/16 -Rheumatology consult Insulin-dependent diabetes mellitus: -Hold oral hypoglycemics -Accu-Cheks 3 times a day before meals/at bedtime -NovoLog sliding scale insulin -Levemir 25 units twice a day Leucopenia: - Likely dilutional. -Since the pt is on prednisone, may check peripheral smear. Hypertension-stable, hold atenolol/amlodipine Hyperlipidemia-stable, continue atorvastatin 40 mg by mouth daily Hypothyroidism-stable, continue levothyroxin 175 MCG by mouth daily Pain plan: -Acetaminophen 1 g IV every 6 hours as needed for pain 4-6 Diet-consistent carbohydrate DVT prophylaxis-subcutaneous heparin CODE STATUS-full code Problem List: 1. Acute kidney injury 2. Influenza A Pain Ratin Pain Location: back Pain Goal: Pain 4 or less Pain Plan: tylenol Tomorrow's Labs & Rationales: no labs necessary
[2016-05-14 08:20] LABS: PLATELET COUNT 71 /CUMM (130-400)
[2016-05-14] MEDS ORDERED: CIPRO500 M1 PO (13:30)
[2016-05-14] MEDS ORDERED: PREDNISONE5 M1 PO (13:34)
[2016-05-14] MEDS ORDERED: BENZONATATE100 M1 PO (13:35)
--- NOTE | 2016-05-14 13:37 | Patient Discharge Instructions ---
Discharge Instructions General Discharge Information You were seen/treated for: Influenza Urinary tract infection Watch for these problems: #1 difficulty urination, burning #2 shortness of breath, chest pain Special Instructions: #1 please follow up with her primary care provider within one week of discharge. #2 please get your blood work done on 05/16/2016. Acute Coronary Syndrome Inclusion Criteria At DC or during hospital stay patient has or had the following: ACS DIAGNOSIS No Discharge Core Measures Meds if any: Prescribed or Continued at Discharge Meds if any: NOT Prescribed or Continued at Discharge Congestive Heart Failure Inclusion Criteria At DC or during hospital stay patient has or had the following: CHF DIAGNOSIS No Discharge Core Measures Meds if any: Prescribed or Continued at Discharge Meds if any: NOT Prescribed or Continued at Discharge Cerebrovascular accident Inclusion Criteria At DC or during hospital stay patient has or had the following: CVA/TIA Diagnosis No Discharge Core Measures Meds if any: Prescribed or Continued at Discharge Meds if any: NOT Prescribed or Continued at Discharge Venous thromboembolism Inclusion Criteria VTE Diagnosis No VTE Type NONE VTE Confirmed by (Test) NONE Discharge Core Measures - Per Current guidelines, there needs to be overlap - treatment for the first 5 days of Warfarin therapy. - If discharged on Warfarin prior to 5 days of - overlap therapy, the patient will need to be - assessed for post discharge needs including - *Post discharge parental anticoagulation - *Warfarin and/or parental anticoagulation education - *Follow up date to check INR post discharge At least 5 days overlap therapy as Inpatient No Meds if any: Prescribed or Continued at Discharge Note: Overlap Therapy is Warfarin and Anticoagulant Meds if any: NOT Prescribed or Continued at Discharge
[2016-05-14 14:29] VITALS: BP 128/80
--- NOTE | 2016-05-15 06:13 | Discharge Summary ---
Visit Information Visit Dates Admission Date: 05/11/16 Discharge Date: 05/14/16 Hospital Course Course Attending Physician: NAVEED LADD MD Primary Care Physician: RICHY WEEKS,JIMI Reyes Consulting Request: Consulting Specialty: Rheumatology Hospital Course: 70-year-old woman with multiple medical problems seen for evaluation of fatigue, lethargy, weakness, decreased oral intake, and loose watery bowel movements. 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 Chest x-ray and EKG were unremarkable. Rapid flu was positive. Given this positive result in patients history suggestive of a gastroenteritis patient most likely is suffering from influenza versus any other alternative diagnosis-she denies any new/undercooked food consumption or recent travel. She is to be started on intravenous fluid resuscitation for dehydration and acute kidney injury and admitted to the general medicine floor for further management. Influenza/Acute Gastritis: Recent history of loose watery stools, nausea, decreased oral intake, and viral myalgia suggestive of an acute viral infection. Given positive rapid flu test is more likely than not patient is suffering from an active influenza infection. Onset of symptoms is reportedly 4-5 days prior to evaluation so medications such as Tamiflu will no longer be effective. Patient was maintained on supportive treatments for her symptoms that included guaifenesin, Imodium, Zofran, and Tessalon Perles. By hospital day 3 patient was eating/drinking well in reporting improvement of her symptoms. She was discharged to home with instruction to follow-up CBC/BEP in 2 days as an outpatient with her PCP Acute kidney injury: Baseline creatinine 0.8 as of 07/01/13. Given her history of recent decreased oral intake in the past 4 days secondary to her nausea and symptoms of gastroenteritis in addition to her reported history of profuse loose watery bowel movements is more likely than not that she suffered kidney injury secondary to prerenal azotemia. With intravenous fluid resuscitation and encouraged oral intake of fluids patient's creatinine quickly improved to 0.9 on day of discharge. Urinary tract infection: Patient complaining of right-sided flank pain/suprapubic tenderness with urinary frequency/urgency. Patient was started on intravenous ceftriaxone for which she received 3 days of antibiotics. She was discharged to home with oral ciprofloxacin to complete a total antibiotic course of 7 days. Blood cultures remained negative and urine culture grew Enterobacter. Acute gouty arthritis: Patient complaining of exquisite left foot/ankle tenderness. No history of trauma/surgery/gout. Uric acid found to be elevated to 11.7. Hyperuricemia is probably secondary to the relative dehydration from the profuse loose all movements in the decreased fluid intake. Patient also takes Lasix which may have contributed to this. Consultation with Dr. Poe (credit card control clerk) was made over the phone for which he recommended a steroid course. Patient reported improvement of her pain on discharge and was continued on a short steroid taper. She was instructed to follow-up with a credit card control clerk after discharge for further evaluation of her acute gouty arthritis. Allergies: Coded Allergies: oxycodone (Intermediate, ITCHING 05/11/16) Disposition Summary Disposition Principal Diagnosis: Influenza Additional Diagnosis: Acute Kidney Injury Discharge Disposition: home or self care Discharge Instructions General Discharge Information Code Status: Full Code Patient's Diet: Diabetic Diet Patient's Activity: Return to full activity as tolerated Follow-Up Instructions/Appts: Follow up with your primary care provider after discharge and obtain a complete blood count and basic metabolic panel within one week of discharge. Make an appointment with a credit card control clerk for further evaluation of your food pain should it persist or recur. Take prednisone and ciprofloxacin as directed. Drink plenty of fluids. Medications at Discharge Discharge Medications: Continue taking these medications: Levothyroxine Sodium (Levothyroxine Sodium) 175 MCG TABLET 1 Tablet ORAL DAILY BEFORE BREAKFAST Qty = 90 Comments: Last Taken: 05/14/16 Time: 6 AM Insulin Detemir (Levemir) 100 UNIT/ML VIAL 35 Units Inject into fatty tissue TWICE DAILY Qty = 20 Comments: Last Taken: 05/14/16 Time: 10 AM Atorvastatin Calcium (Atorvastatin Calcium) 40 MG TABLET 1 Tablet ORAL 5 PM Qty = 90 Comments: Last Taken: 05/13/16 Time: 4PM Atenolol (Atenolol) 100 MG TABLET 1 Tablet ORAL DAILY Qty = 90 Comments: NOT GIVEN Hydrochlorothiazide (Hydrochlorothiazide) 25 MG TABLET 1 Tablet ORAL DAILY Qty = 90 Instructions: Reason to Stop at ADM: RUFINO Comments: NOT GIVEN Lisinopril (Lisinopril) 20 MG TABLET 1 Tablet ORAL DAILY Qty = 90 Instructions: Reason to Stop at ADM: RUFINO Comments: NOT GIVEN Omeprazole (Omeprazole) 40 MG CAPSULE.DR 1 Capsule ORAL DAILY Qty = 30 Comments: Last Taken: 05/14/16 Time: 6 AM Amlodipine Besylate (Amlodipine Besylate) 10 MG TABLET 1 Tablet ORAL DAILY Qty = 90 Comments: NOT GIVEN Furosemide (Furosemide) 40 MG TABLET 1 Tablet ORAL DAILY Qty = 30 Instructions: Reason to Stop at ADM: RUFINO Comments: NOT GIVEN Start taking the following new medications: Benzonatate (Benzonatate) 100 MG CAPSULE 100 Milligram ORAL THREE TIMES DAILY as needed for cough Qty = 30 No Refills Comments: Last Taken: 05/14/16 Time: 10 AM Ciprofloxacin HCl (Cipro) 500 MG TABLET 1 Tablet ORAL TWICE DAILY Days = 4 No Refills Comments: NOT GIVEN Prednisone (Prednisone) 5 MG TABLET 0 ORAL TWICE DAILY Qty = 14 No Refills Instructions: Please take 4 tabs(20 mg) on 05/14 3 tabs(15mg) twice daily 05/15,05/16 2 tabs(10mg) twice daily 05/17,05/18. Comments: Last Taken: 05/14/16 Time: 10 AM Copies To: RICHY WEEKS,JIMI Reyes; CECIL WEEKS,CJ Benavides
== END 2016-05-14 15:10 | DRG 683 ==
LOC: ENRESERVTM → ENRESERVDT → ERH 12:31 → 2NA 14:30 → ERHI 14:30 → 2NA 17:01
PROVIDERS: Emergency Medicine; Internal Medicine; Internal Medicine Endocrinology, Diabetes & Metabolism; Internal Medicine Interventional Cardiology; ADMIT Internal Medicine
DX: N17.9 Acute kidney failure, unspecified (principal); N39.0 Urinary tract infection, site not specified; E86.0 Dehydration; E11.9 Type 2 diabetes mellitus without complications; J11.1 Influenza due to unidentified influenza virus with other respiratory manifestations; M10.9 Gout, unspecified; I10 Essential (primary) hypertension; E78.5 Hyperlipidemia, unspecified
CPT/HCPCS: 2NAP; 36415; 81001; 82436; 87040; 87045; 87086; 87804; 87804-59; 93005; 93010; 96374; J0131; J0696; J1644; J2920